=== PATIENT | female | born 1990 | race Two or more races ===

== ENCOUNTER 2018-01-31 21:18 | Emergency (ER) | payer OTHER ==
[2018-02-01] MEDS ORDERED: BENZONATATE 100 MG CAPSULE PO ONE (00:06)
[2018-02-01] MEDS ORDERED: LIDOCAINE 2% INJ-PF (20 MG/ML) 10 ML AMPUL NEB ONE (00:06)
--- NOTE | 2018-02-01 00:07 | ER Document Report ---
ED General - General Chief Complaint: Cold Symptoms Stated Complaint: COUGH,SORE THROAT Time Seen by Provider: 01/31/18 22:51 Notes: Patient is a 27-year-old female without chronic medical problems who presents with 3 days of sinus pressure, cough, nasal congestion, right ear pain and feeling generally poor. She was seen in urgent care 2 days ago, started on steroids and azithromycin pack without any improvement of her symptoms. Nothing seems to worsen her symptoms. Multiple sick contacts with similar illness. No history of similar symptoms in the recent past. She denies any fever or constitutional symptoms. No vomiting or diarrhea. She denies any shortness of breath. TRAVEL OUTSIDE OF THE [place] IN LAST 30 DAYS: No - Related Data Allergies/Adverse Reactions: No Known Allergies Allergy (Unverified 01/31/18 21:26) Past Medical History - General Information source: Patient - Social History Smoking Status: Current Every Day Smoker Chew tobacco use (# tins/day): No Frequency of alcohol use: None Drug Abuse: None Lives with: Family Family History: Reviewed & Not Pertinent Patient has suicidal ideation: No Patient has homicidal ideation: No Pulmonary Medical History: Reports: Hx Asthma Renal/ Medical History: Denies: Hx Peritoneal Dialysis Past Surgical History: Reports: Hx Appendectomy - 2007 Review of Systems - Review of Systems Notes: Constitutional: Negative for fever. HENT: Positive for sore throat. Eyes: Negative for visual changes. Cardiovascular: Negative for chest pain. Respiratory: Positive for cough Gastrointestinal: Negative for abdominal pain, vomiting or diarrhea. Genitourinary: Negative for dysuria. Musculoskeletal: Negative for back pain. Skin: Negative for rash. Neurological: Negative for headaches, weakness or numbness. 10 point ROS negative except as marked above and in HPI. Physical Exam - Vital signs Vitals: Temp Pulse Resp BP Pulse Ox 98 F 89 18 108/73 100 01/31/18 21:25 01/31/18 21:25 01/31/18 21:25 01/31/18 21:25 01/31/18 21:25 Interpretation: Normal Notes: PHYSICAL EXAMINATION: GENERAL: Well-appearing, well-nourished and in no acute distress. HEAD: Atraumatic, normocephalic. EYES: Pupils equal round and reactive to light, extraocular movements intact, sclera anicteric, conjunctiva are normal. ENT: nares patent, bulging of the right tympanic membrane without purulent effusion, left TM clear. Oropharynx clear without exudates. Moist mucous membranes. NECK: Normal range of motion, supple without lymphadenopathy LUNGS: Breath sounds clear to auscultation bilaterally and equal. No wheezes rales or rhonchi. HEART: Regular rate and rhythm without murmurs ABDOMEN: Soft, nontender, normoactive bowel sounds. No guarding, no rebound. No masses appreciated. EXTREMITIES: Normal range of motion, no pitting or edema. No cyanosis. NEUROLOGICAL: No focal neurological deficits. Moves all extremities spontaneously and on command. PSYCH: Normal mood, normal affect. SKIN: Warm, Dry, normal turgor, no rashes or lesions noted. Course - Re-evaluation Re-evalutation: 02/01/18 00:07 Presentation is most consistent with a viral upper respiratory infection. Patient is overall well appearance, vitals within normal limits, well-hydrated. Patient denies any headache, neck pain, and has no evidence of meningismus on examination. Lungs are clear bilaterally. Chest x-ray is clear. No evidence of respiratory distress. Based on clinical exam and history, I do not suspect an acute pneumonia, meningitis, strep pharyngitis, or an acute encephalitis. At this time will discharge with return precautions and follow-up recommendations. Verbal discharge instructions given a the bedside and opportunity for questions given. Medication warnings reviewed. Patient is in agreement with this plan and has verbalized understanding of return precautions and the need for primary care follow-up in the next 24-72 hours. - Vital Signs Vital signs: Temp Pulse Resp BP Pulse Ox 98.3 F 72 18 101/45 L 99 02/01/18 01:16 02/01/18 01:16 01/31/18 21:25 02/01/18 01:16 02/01/18 01:16 - Diagnostic Test Radiology reviewed: Image reviewed, Reports reviewed Radiology results interpreted by me: 02/01/18 03:55 Chest x-ray: No acute infiltrate or pneumothorax Discharge - Discharge Clinical Impression: Viral upper respiratory tract infection with cough, Right ear pain, Sore throat Condition: Good Disposition: HOME, SELF-CARE Additional Instructions: Your symptoms are most likely due to a viral infection it should resolve over the next 7-14 days. You should take nfrx-[id number] guanfacine per bottle instructions to help thin the mucus. For nasal congestion: I would recommend that you get ktvg-hmy-ykllcoa oxymetazoline also known is afrin. Use only per bottle instructions and be sure to never use this for more than 3 days if you can develop severe rebound congestion. You may also use tylenol or ibuprofen as needed for aches and thorat discomfort. Please be sure to drink plenty of fluids and get rest. Return to the emergency department he began having difficulty breathing, chest pain, persistent vomiting, or any other symptoms that are concerning to you. Prescriptions: Benzonatate [Tessalon Perles 100 mg Capsule] 100 mg PO Q8HP PRN #40 capsule PRN Reason:
--- NOTE | 2018-02-01 00:08 | RADIOLOGY REPORT (SQ) ---
EXAM DESCRIPTION: XR CHEST 1 VIEW COMPLETED DATE/TME: 01/31/2018 22:52 CLINICAL HISTORY: 27 years Female, cough, sob COMPARISON: One day prior. NUMBER OF VIEWS/TECHNIQUE: 1/AP FINDINGS: Clear lungs of adequate volume, and normal cardiac silhouette. No significant pneumothorax. Mild scoliotic curvature. IMPRESSION: No significant change.
[2018-02-01 01:21] VITALS: BP 101/45
== END 2018-02-01 01:21 | disposition home or self-care (01) ==
LOC: ER 21:18
DX: J06.9 Acute upper respiratory infection, unspecified (principal); B97.89 Other viral agents as the cause of diseases classified elsewhere; J02.9 Acute pharyngitis, unspecified; R05 Cough; H92.01 Otalgia, right ear; J34.89 Other specified disorders of nose and nasal sinuses; R09.81 Nasal congestion; F17.200 Nicotine dependence, unspecified, uncomplicated; J45.909 Unspecified asthma, uncomplicated
CPT/HCPCS: 99283; 71045; J3490

== ENCOUNTER 2018-07-21 11:20 | Emergency (ER) | payer OTHER ==
--- NOTE | 2018-07-21 11:42 | ER Document Report ---
ED Medical Screen (RME) - General Chief Complaint: Chest Pain Stated Complaint: CHEST PAIN Time Seen by Provider: 07/21/18 11:34 Primary Care Provider: HARITHA MONTANO PA-C [Primary Care Provider] - Follow up as needed TRAVEL OUTSIDE OF THE [place] IN LAST 30 DAYS: No - HPI Patient complains to provider of: Chest pain Notes: 07/21/18 11:41 Patient is a 28-year-old female presenting to the emergency room today complaining of midsternal chest pain that radiates through to her back, dizziness and generalized weakness, symptoms have been going on for the past 4 days, she denies any past medical problems, she is not a smoker, she denies a cough, cold or congestion, no nausea, vomiting or diarrhea, no history of similar symptoms previously, no recent traveling or periods of immobilization, no calf pain or tenderness RAPID MEDICAL EVALUATION DISCLOSURE I have seen this patient as part of a Rapid Medical Evaluation and, if applicable, placed any initially appropriate orders. The patient will be seen and fully evaluated, including a full history and physical exam, by a provider (in Main ED or Fast Track) when a room becomes available. - Related Data Allergies/Adverse Reactions: No Known Allergies Allergy (Verified 07/21/18 11:39) Past Medical History - Social History Frequency of alcohol use: None Drug Abuse: None Pulmonary Medical History: Reports: Hx Asthma Renal/ Medical History: Denies: Hx Peritoneal Dialysis Past Surgical History: Reports: Hx Appendectomy - 2007 Physical Exam - Vital signs Vitals: Temp Pulse Resp BP Pulse Ox 98.5 F 98 16 120/66 100 07/21/18 11:24 07/21/18 11:24 07/21/18 11:24 07/21/18 11:24 07/21/18 11:24 Course - Vital Signs Vital signs: Temp Pulse Resp BP Pulse Ox 98.5 F 98 16 120/66 100 07/21/18 11:24 07/21/18 11:24 07/21/18 11:24 07/21/18 11:24 07/21/18 11:24 Doctor's Discharge - Discharge Referrals: HARITHA MONTANO PA-C [Primary Care Provider] - Follow up as needed
--- NOTE | 2018-07-21 12:07 | RADIOLOGY REPORT (SQ) ---
EXAM DESCRIPTION: CHEST 2 VIEWS COMPLETED DATE/TIME: 07/21/2018 11:54 am REASON FOR STUDY: cp COMPARISON: None. EXAM PARAMETERS: NUMBER OF VIEWS: two views TECHNIQUE: Digital Frontal and Lateral radiographic views of the chest acquired. RADIATION DOSE: NA LIMITATIONS: none FINDINGS: LUNGS AND PLEURA: No opacities, masses or pneumothorax. No pleural effusion. MEDIASTINUM AND HILAR STRUCTURES: No masses or contour abnormalities. HEART AND VASCULAR STRUCTURES: Heart normal size. No evidence for failure. BONES: Serpiginous thoracolumbar curvature. No acute changes. HARDWARE: None in the chest. OTHER: No other significant finding. IMPRESSION: NO ACUTE RADIOGRAPHIC FINDING IN THE CHEST. TECHNICAL DOCUMENTATION: JOB ID: [id number]- All Rights Reserved Reading location - IP/workstation name: [email or web address]
[2018-07-21 12:20] LABS: ABSOLUTE EOSINOPHILS # (AUTO) 0.1 10^3/uL (0.0-0.6); ABSOLUTE LYMPHOCYTES (AUTO) 1.9 10^3/uL (0.5-4.7); ABSOLUTE MONOCYTES (AUTO) 0.3 10^3/uL (0.1-1.4); ABSOLUTE NEUT (AUTO) 2.5 10^3/uL (1.7-8.2); BASOPHILS % (AUTO) 0.8 % (0-2); EOSINOPHILS % (AUTO) 2.3 % (0-6); HEMATOCRIT 40.7 % (36.0-47.0); HEMOGLOBIN 14.1 g/dL (12.0-15.5); LYMPHOCYTES % (AUTO) 39.4 % (13-45); MEAN CORPUSCULAR HGB CONC 34.6 g/dL (32.0-36.0); MEAN CORPUSCULAR VOLUME 90 fl (80-97); MONOCYTES % (AUTO) 6.1 % (3-13); PLATELET COUNT 340 10^3/uL (150-450); RED BLOOD COUNT 4.54 10^6/uL (3.72-5.28); RED CELL DISTRIBUTION WIDTH 12.9 % (11.5-14.0); SEGMENTED NEUTROPHILS % (AUTO) 51.4 % (42-78); TOTAL CELLS COUNTED % (AUTO) 100 %; WHITE BLOOD COUNT 4.9 10^3/uL (4.0-10.5)
[2018-07-21 12:28] LABS: APPEARANCE,URINE SLIGHTLY-CLOUDY; BILIRUBIN,URINE NEGATIVE (NEGATIVE); COLOR,URINE YELLOW; GLUCOSE, URINE NEGATIVE (NEGATIVE); KETONES,URINE NEGATIVE (NEGATIVE); LEUKOCYTE ESTERASE,URINE SMALL (NEGATIVE); NITRITE,URINE NEGATIVE (NEGATIVE); PROTEIN,URINE NEGATIVE (NEGATIVE); URINE SPECIFIC GRAVITY 1.021; UROBILINOGEN,URINE NEGATIVE mg/dL (<2.0)
[2018-07-21 12:35] LABS: ALANINE AMINOTRANSFERASE 20 U/L (9-52); ALBUMIN 4.5 g/dL (3.5-5.0); ALKALINE PHOSPHATASE 58 U/L (38-126); ANION GAP 9 (5-19); ASPARTATE AMINO TRANSFERASE 19 U/L (14-36); BILIRUBIN,DIRECT 0.2 mg/dL (0.0-0.4); BILIRUBIN,TOTAL 0.5 mg/dL (0.2-1.3); BLOOD UREA NITROGEN 14 mg/dL (7-20); CARBON DIOXIDE 28 mmol/L (22-30); CHLORIDE 105 mmol/L (98-107); GLUCOSE 79 mg/dL (75-110); LIPASE 75.4 U/L (23-300); POTASSIUM 3.6 mmol/L (3.6-5.0); SODIUM 142.2 mmol/L (137-145); TOTAL PROTEIN 7.4 g/dL (6.3-8.2)
--- NOTE | 2018-07-21 12:37 | ER Document Report ---
ED General - General Chief Complaint: Chest Pain Stated Complaint: CHEST PAIN Time Seen by Provider: 07/21/18 11:34 Primary Care Provider: HARITHA MONTANO PA-C [NO LOCAL MD] - Follow up as needed Notes: 28-year-old female presenting to the emergency room today complaining of midsternal chest pain that radiates through to her back, dizziness and generalized weakness, symptoms have been going on for the past 4 days, she denies any past medical problems, she is not a smoker, she denies a cough, cold or congestion, no nausea, vomiting or diarrhea, no history of similar symptoms previously, no recent traveling or periods of immobilization, no calf pain or tenderness. Denies any fever chills or cough. Denies any chest trauma. Denies calf pain or leg swelling denies illicit drugs. TRAVEL OUTSIDE OF THE [place] IN LAST 30 DAYS: No - Related Data Allergies/Adverse Reactions: No Known Allergies Allergy (Verified 07/21/18 11:39) Past Medical History - Social History Smoking Status: Current Every Day Smoker Frequency of alcohol use: None Drug Abuse: None Family History: Reviewed & Not Pertinent Patient has suicidal ideation: No Patient has homicidal ideation: No Pulmonary Medical History: Reports: Hx Asthma Renal/ Medical History: Denies: Hx Peritoneal Dialysis Past Surgical History: Reports: Hx Appendectomy - 2007 Review of Systems - Review of Systems Constitutional: denies: Chills, Fever Cardiovascular: Chest pain, Palpitations Respiratory: Short of breath. denies: Hemoptysis, Wheezing Neurological/Psychological: Anxiety -: Yes All other systems reviewed and negative Physical Exam - Vital signs Vitals: Temp Pulse Resp BP Pulse Ox 98.5 F 98 16 120/66 100 07/21/18 11:24 07/21/18 11:24 07/21/18 11:24 07/21/18 11:24 07/21/18 11:24 - Notes Notes: GENERAL_APPEARANCE: well_nourished, alert, cooperative, no_acute_distress, no_obvious_discomfort. VITALS: reviewed, see vital signs table. HEAD: no_swelling\tenderness on the head. EYES: PERRL, EOMI, conjunctiva_clear. NOSE: no_nasal_discharge. MOUTH: (-)decreased moisture. THROAT: no_throat_inflammation, no_airway_obstruction. no_lymphadenopathy NECK: supple, no_neck_tenderness, (-)thyromegaly. BACK: no_back_tenderness. CHEST_WALL: Left parasternal_chest_tenderness. Crepitus or subcutaneous emphysema LUNGS: no_wheezing, no_rales, no_rhonchi, (-)accessory muscle use, good air exchange bilateral. HEART: normal_rate, normal_rhythm, normal_S1, normal_S2, (-)S3, (-)S4, no_murmur, no_rub. ABDOMEN: normal_BS, soft, no_abd_tenderness, (-)guarding, (-)rebound, no_organomegaly, no_abd_masses. EXTREMITIES: strength 5/5 in all_extremities, good pulses in all_extremities, no_swelling\tenderness in the extremities, no_edema. SKIN: warm, dry, good_color, no_rash. MENTAL_STATUS: speech_clear, oriented_X_3, anxious_affect, responds_appropriately to questions. Course - Re-evaluation Re-evalutation: 07/21/18 12:38 28-year-old female presents with some chest discomfort. EKG shows no significant changes. The patient has some reproducible discomfort in the left parasternal cartilage. No crepitus no subcu tinnitus emphysema. 07/21/18 12:39 Patient low risk for ACS heart score is 1. Perk Negative -no risk for PE no tachycardia tachypnea or oxygen requirements are noted no calf pain or leg tenderness no history of DVT or PE before. 07/21/18 13:54 Workup has been negative. Patient is low risk for DVT and ACS. I think this is likely costochondritis based on clinical exam recommend ibuprofen. Follow-up if not improving in 48-72 hours - Vital Signs Vital signs: Temp Pulse Resp BP Pulse Ox 98.5 F 98 18 120/66 98 07/21/18 11:24 07/21/18 11:24 07/21/18 12:35 07/21/18 11:24 07/21/18 12:35 - Laboratory Result Diagrams: 07/21/18 11:57 07/21/18 11:57 Laboratory results interpreted by me: 07/21/18 11:57 Urine Blood LARGE H Ur Leukocyte Esterase SMALL H - Diagnostic Test Radiology reviewed: Reports reviewed Radiology results interpreted by me: 07/21/18 13:56 Chest X-Ray 07/21/18 11:41 IMPRESSION: NO ACUTE RADIOGRAPHIC FINDING IN THE CHEST. - EKG Interpretation by Me EKG shows normal: Sinus rhythm Rate: Normal Rhythm: NSR Discharge - Discharge Clinical Impression: Acute costochondritis Condition: Good Disposition: HOME, SELF-CARE Instructions: Chest Wall Pain ([facility]) Additional Instructions: Take ibuprofen for pain, if not improving in 40-72 hours return to the ER Referrals: HARITHA MONTANO PA-C [NO LOCAL MD] - Follow up as needed
[2018-07-21 14:04] VITALS: BP 92/57
--- NOTE | 2018-07-21 15:56 | EKG REPORT ---
SEVERITY:- NORMAL ECG - SINUS RHYTHM : Confirmed by: Juan Pablo Vidales MD 21-Jul-2018 15:55:39
== END 2018-07-21 14:16 | disposition home or self-care (01) ==
LOC: ER 11:20
DX: M94.0 Chondrocostal junction syndrome [Tietze] (principal); F17.200 Nicotine dependence, unspecified, uncomplicated
CPT/HCPCS: 36415; 71046; 80053; 81001; 81025; 83690; 84484; 85025; 93005; 93010; 99285

== ENCOUNTER 2019-01-20 19:49 | Emergency (ER) | payer OTHER, MEDICAID ==
[2019-01-20 21:26] LABS: ABSOLUTE EOSINOPHILS # (AUTO) 0.1 10^3/uL (0.0-0.6); ABSOLUTE LYMPHOCYTES (AUTO) 2.2 10^3/uL (0.5-4.7); ABSOLUTE MONOCYTES (AUTO) 0.4 10^3/uL (0.1-1.4); ABSOLUTE NEUT (AUTO) 4.9 10^3/uL (1.7-8.2); BASOPHILS % (AUTO) 0.5 % (0-2); EOSINOPHILS % (AUTO) 1.8 % (0-6); HEMATOCRIT 36.8 % (36.0-47.0); HEMOGLOBIN 12.7 g/dL (12.0-15.5); LYMPHOCYTES % (AUTO) 28.8 % (13-45); MEAN CORPUSCULAR HEMOGLOBIN 30.4 pg (27.0-33.4); MEAN CORPUSCULAR HGB CONC 34.5 g/dL (32.0-36.0); MEAN CORPUSCULAR VOLUME 88 fl (80-97); MONOCYTES % (AUTO) 5.5 % (3-13); PLATELET COUNT 325 10^3/uL (150-450); RED BLOOD COUNT 4.18 10^6/uL (3.72-5.28); RED CELL DISTRIBUTION WIDTH 14.1 % (11.5-14.0); SEGMENTED NEUTROPHILS % (AUTO) 63.4 % (42-78); TOTAL CELLS COUNTED % (AUTO) 100 %; WHITE BLOOD COUNT 7.6 10^3/uL (4.0-10.5)
[2019-01-20 21:37] LABS: APPEARANCE,URINE SLIGHTLY-CLOUDY; BILIRUBIN,URINE NEGATIVE (NEGATIVE); COLOR,URINE YELLOW; GLUCOSE, URINE NEGATIVE (NEGATIVE); KETONES,URINE NEGATIVE (NEGATIVE); LEUKOCYTE ESTERASE,URINE LARGE (NEGATIVE); NITRITE,URINE NEGATIVE (NEGATIVE); PROTEIN,URINE NEGATIVE (NEGATIVE); URINE SPECIFIC GRAVITY 1.021; UROBILINOGEN,URINE NEGATIVE mg/dL (<2.0)
[2019-01-20 21:45] LABS: ALANINE AMINOTRANSFERASE 19 U/L (9-52); ALBUMIN 3.6 g/dL (3.5-5.0); ALKALINE PHOSPHATASE 49 U/L (38-126); ANION GAP 8 (5-19); ASPARTATE AMINO TRANSFERASE 15 U/L (14-36); BILIRUBIN,DIRECT 0.2 mg/dL (0.0-0.4); BILIRUBIN,TOTAL 0.3 mg/dL (0.2-1.3); BLOOD UREA NITROGEN 10 mg/dL (7-20); CALCIUM 9.2 mg/dL (8.4-10.2); CARBON DIOXIDE 26 mmol/L (22-30); CHLORIDE 105 mmol/L (98-107); GLUCOSE 78 mg/dL (75-110); POTASSIUM 3.9 mmol/L (3.6-5.0); TOTAL PROTEIN 6.2 g/dL (6.3-8.2)
--- NOTE | 2019-01-20 22:09 | ER Document Report ---
ED GI/ - General Chief Complaint: Abdominal Pain Stated Complaint: ABDOMINAL PAIN, DIZZINESS Time Seen by Provider: 01/20/19 20:44 Primary Care Provider: [facility] [Outside] - Follow up as needed Mode of Arrival: Ambulatory Information source: Patient Notes: Patient is a 28-year-old female presenting to the emergency department with chief complaints of left lower quadrant abdominal pain. Patient reports pain started yesterday. She reports it feels like a cramping pain. She reports nausea but denies any vomiting or diarrhea. She does report that she has been constipated lately. She reports past medical history of having an appendectomy, denies possibility of . Patient is not on any control. Patient does report that she had a fever of 101 yesterday. TRAVEL OUTSIDE OF THE [place] IN LAST 30 DAYS: No - Related Data Allergies/Adverse Reactions: No Known Allergies Allergy (Verified 07/21/18 11:39) Past Medical History - General Information source: Patient - Social History Smoking Status: Never Smoker Frequency of alcohol use: None Drug Abuse: None Family History: Reviewed & Not Pertinent Pulmonary Medical History: Reports: Hx Asthma Renal/ Medical History: Denies: Hx Peritoneal Dialysis Past Surgical History: Reports: Hx Appendectomy - 2007 - Immunizations Immunizations up to date: Yes Review of Systems - Review of Systems Constitutional: No symptoms reported EENT: No symptoms reported Cardiovascular: No symptoms reported Respiratory: No symptoms reported Gastrointestinal: Abdominal pain, Nausea, Constipation. denies: Diarrhea, Vomiting Genitourinary: No symptoms reported. denies: Burning, Dysuria, Frequency, Flank pain Female Genitourinary: No symptoms reported. denies: Musculoskeletal: No symptoms reported Skin: No symptoms reported Hematologic/Lymphatic: No symptoms reported Neurological/Psychological: No symptoms reported Physical Exam - Vital signs Vitals: Temp Pulse Resp BP Pulse Ox 98.8 F 103 H 24 H 115/68 100 01/20/19 20:02 01/20/19 20:02 01/20/19 20:02 01/20/19 20:02 01/20/19 20:02 - Notes Notes: PHYSICAL EXAMINATION: GENERAL: Well-appearing, well-nourished and in no acute distress. HEAD: Atraumatic, normocephalic. EYES: Pupils equal round and reactive to light, extraocular movements intact, conjunctiva are normal. ENT: Nares patent, oropharynx clear without exudates. Moist mucous membranes. NECK: Normal range of motion, supple without lymphadenopathy LUNGS: Breath sounds clear to auscultation bilaterally and equal. No wheezes rales or rhonchi. HEART: Regular rate and rhythm without murmurs ABDOMEN: Soft, nondistended abdomen. Tenderness with palpation to left lower quadrant. No guarding, no rebound. No masses appreciated. Female : No CVA tenderness. Musculoskeletal: Normal range of motion, no pitting or edema. No cyanosis. NEUROLOGICAL: Cranial nerves grossly intact. Normal speech, normal gait. Normal sensory, motor exams PSYCH: Normal mood, normal affect. SKIN: Warm, Dry, normal turgor, no rashes or lesions noted. Course - Re-evaluation Re-evalutation: Laboratory 01/20/19 01/20/19 01/20/19 20:40 21:10 21:10 WBC 7.6 RBC 4.18 Hgb 12.7 Hct 36.8 MCV 88 MCH 30.4 MCHC 34.5 RDW 14.1 H Plt Count 325 Seg Neutrophils % 63.4 Lymphocytes % 28.8 Monocytes % 5.5 Eosinophils % 1.8 Basophils % 0.5 Absolute Neutrophils 4.9 Absolute Lymphocytes 2.2 Absolute Monocytes 0.4 Absolute Eosinophils 0.1 Absolute Basophils 0.0 Sodium 138.5 Potassium 3.9 Chloride 105 Carbon Dioxide 26 Anion Gap 8 BUN 10 Creatinine 0.57 Est GFR ( Amer) > 60 Est GFR (Non-Af Amer) > 60 Glucose 78 Calcium 9.2 Total Bilirubin 0.3 Direct Bilirubin 0.2 Neonat Total Bilirubin Not Reportable Neonat Direct Bilirubin Not Reportable Neonat Indirect Bili Not Reportable AST 15 ALT 19 Alkaline Phosphatase 49 Total Protein 6.2 L Albumin 3.6 Lipase 93.2 Beta HCG, Quant Total Beta HCG Urine Color YELLOW Urine Appearance SLIGHTLY-CLOUDY Urine pH 5.0 Ur Specific [place] 1.021 Urine Protein NEGATIVE Urine Glucose (UA) NEGATIVE Urine Ketones NEGATIVE Urine Blood NEGATIVE Urine Nitrite NEGATIVE Urine Bilirubin NEGATIVE Urine Urobilinogen NEGATIVE Ur Leukocyte Esterase LARGE H Urine WBC (Auto) 13 Urine RBC (Auto) 2 Squamous Epi Cells Auto 8 Urine Mucus (Auto) RARE Urine Ascorbic Acid NEGATIVE Urine HCG, Qual POSITIVE H 01/20/19 21:10 WBC RBC Hgb Hct MCV MCH MCHC RDW Plt Count Seg Neutrophils % Lymphocytes % Monocytes % Eosinophils % Basophils % Absolute Neutrophils Absolute Lymphocytes Absolute Monocytes Absolute Eosinophils Absolute Basophils Sodium Potassium Chloride Carbon Dioxide Anion Gap BUN Creatinine Est GFR ( Amer) Est GFR (Non-Af Amer) Glucose Calcium Total Bilirubin Direct Bilirubin Neonat Total Bilirubin Neonat Direct Bilirubin Neonat Indirect Bili AST ALT Alkaline Phosphatase Total Protein Albumin Lipase Beta HCG, Quant 1777.80 H Total Beta HCG POSITIVE Urine Color Urine Appearance Urine pH Ur Specific [place] Urine Protein Urine Glucose (UA) Urine Ketones Urine Blood Urine Nitrite Urine Bilirubin Urine Urobilinogen Ur Leukocyte Esterase Urine WBC (Auto) Urine RBC (Auto) Squamous Epi Cells Auto Urine Mucus (Auto) Urine Ascorbic Acid Urine HCG, Qual Transvaginal US 01/20/19 21:03 IMPRESSION: Unremarkable pelvic ultrasound. All test results were discussed with patient, quick patient was quite surprised that she was . Patient very tearful, states she cannot have another b angelia as she is a single mother with a 3-year-old, patient requested information for [facility] as she states she will most likely need to terminate the . I did give patient all needed resources. I did start her on an antibiotic for urinary tract infection. I also explained to her that this is likely an early considering that she does not have any intrauterine on the ultrasound but a positive blood in urine test. I also discussed with patient that an early ectopic cannot be excluded at this point in time and she has strict ED return precautions. Patient verbalized understanding and agreement with plan. The patient's emergency department workup and current diagnosis were explained to the patient and or family. Follow-up instructions were provided. Medications if prescribed were discussed. Instructions for when to return to the emergency department including specific worrisome symptoms were discussed with the patient and/or family. - Vital Signs Vital signs: Temp Pulse Resp BP Pulse Ox 98.9 F 78 16 105/64 100 01/20/19 23:44 01/20/19 23:44 01/20/19 23:44 01/20/19 23:44 01/20/19 23:44 - Laboratory Result Diagrams: 01/20/19 21:10 01/20/19 21:10 Laboratory results interpreted by me: 01/20/19 01/20/19 01/20/19 20:40 21:10 21:10 RDW 14.1 H Total Protein 6.2 L Beta HCG, Quant Ur Leukocyte Esterase LARGE H Urine HCG, Qual POSITIVE H 01/20/19 21:10 RDW Total Protein Beta HCG, Quant 1777.80 H Ur Leukocyte Esterase Urine HCG, Qual Discharge - Discharge Clinical Impression: Qualifiers: Weeks of gestation: unspecified Qualified Code(s): Z34.90 - Encounter for supervision of normal , unspecified, unspecified trimester Abdominal pain Qualifiers: Abdominal location: left lower quadrant Qualified Code(s): R10.32 - Left lower quadrant pain Condition: Stable Disposition: HOME, SELF-CARE Additional Instructions: Your urine shows findings consistent with a urinary tract infection. Your blood and labs show a probable early as both tests were positive. There was no evidence of on the ultrasound suite is likely that you are less than 6 weeks. Please take all the antibiotics as directed even if your symptoms have improved. Please follow-up with your primary care physician as needed. Soak the affected finger and Epson salt soaks 3-4 times daily. Return to emergency room if you develop fever >101F, persistent vomiting, become lethargic, have severe pain in your sides, or any other symptoms that are concerning to you. [facility] [address] [address] [facility], [place] [address] Prescriptions: Cephalexin [Cephalexin 500 MG Tablet] 1 tab PO BID #14 tablet Referrals: [facility] [Outside] - Follow up as needed
--- NOTE | 2019-01-20 22:12 | RADIOLOGY REPORT (SQ) ---
US PELVIS EXAM DATE: 01/20/2019 9:03 PM CDT HISTORY: Left lower quadrant pain. COMPARISON: None. TECHNIQUE: Grayscale, color Doppler, and spectral Doppler ultrasound images of the pelvis were obtained. FINDINGS: The uterus is anteverted and measures 8.8 x 5.7 x 4.5 cm. The endometrium is 1.6 cm in thickness. The cervix is closed and measures 2.3 cm in length. Nabothian cysts are seen in the cervix. Both ovaries are normal in size and contain normal follicles, with the right ovary measuring 2.2 x 2.9 x 3.5 cm, and the left ovary measuring 1.4 x 1.6 x 2.3 cm. Normal color Doppler blood flow is seen in both ovaries. No pelvic free fluid. IMPRESSION: Unremarkable pelvic ultrasound.
[2019-01-20 23:46] VITALS: BP 105/64
== END 2019-01-20 23:46 | disposition home or self-care (01) ==
LOC: ER 19:49
DX: O23.40 Unspecified infection of urinary tract in pregnancy, unspecified trimester (principal); O99.619 Diseases of the digestive system complicating pregnancy, unspecified trimester; K59.00 Constipation, unspecified; O26.899 Other specified pregnancy related conditions, unspecified trimester; R10.32 Left lower quadrant pain; R10.814 Left lower quadrant abdominal tenderness; R11.0 Nausea; O99.519 Diseases of the respiratory system complicating pregnancy, unspecified trimester; J45.909 Unspecified asthma, uncomplicated; Z3A.00 Weeks of gestation of pregnancy not specified; Z90.49 Acquired absence of other specified parts of digestive tract
CPT/HCPCS: 36415; 76817; 80053; 81001; 81025; 83690; 84702; 85025; 93976; 99284

== ENCOUNTER 2019-01-22 18:55 | Emergency (ER) | payer OTHER, MEDICAID ==
[2019-01-22 19:15] VITALS: BP 103/61
--- NOTE | 2019-01-22 20:13 | ER Document Report ---
HPI - HPI Pain Level: 2 Notes: Patient is a 28-year-old female is approximately 5 weeks who presents complaining of infection to the nail of her fourth left finger status post injury a few days ago. Patient was evaluated and given Keflex 2 days ago. Patient states that she has had continued discharge from the area and some increase redness. She has no other concerns or complaints. She is eating and drinking without difficulty. She is urinating normally. Denies drug allergies. Denies any headache, fever, URI, sore throat, chest pain, palpitations, syncope, cough, shortness of breath, wheeze, dyspnea, abdominal pain, nausea/vomiting/diarrhea, urinary retention, dysuria, hematuria, numbness/tingling, muscle paralysis/weakness, or rash. - ROS Systems Reviewed and Negative: Yes All other systems reviewed and negative - REPRODUCTIVE Reproductive: DENIES: : Past Medical History - Social History Smoking Status: Unknown if Ever Smoked Family History: Reviewed & Not Pertinent Pulmonary Medical History: Reports: Hx Asthma Renal/ Medical History: Denies: Hx Peritoneal Dialysis Past Surgical History: Reports: Hx Appendectomy - 2007 - Immunizations Immunizations up to date: Yes Vertical Provider Document - CONSTITUTIONAL Agree With Documented VS: Yes Notes: PHYSICAL EXAMINATION: GENERAL: Well-appearing, well-nourished and in no acute distress. LUNGS: Breath sounds clear to auscultation bilaterally and equal. No wheezes rales or rhonchi. HEART: Regular rate and rhythm without murmurs, rubs, gallops. Musculoskeletal: Left 4th finger: FROM to passive/active. Strength 5+/5. N/V intact distal. + small paronychia noted with purulence being expressed. + erythema without streaking. Extremities: No cyanosis, clubbing, or edema b/l. Peripheral pulses 2+. Capillary refill less than 3 seconds. NEUROLOGICAL: Normal speech, normal gait. Normal sensory, motor exams PSYCH: Normal mood, normal affect. SKIN: see above. - INFECTION CONTROL TRAVEL OUTSIDE OF THE [place] IN LAST 30 DAYS: No Course - Re-evaluation Re-evalutation: 01/22/19 Patient is an afebrile, well-hydrated, 28-year-old female who presents with a small paronychia to the left fourth finger. Vitals are acceptable without significant tachycardia, tachypnea, or hypoxia. PE is otherwise unremarkable for any neurovascular compromise, obvious tendon/leg rupture, obvious fracture/dislocation, septic joint. Patient is nontoxic-appearing and is tolerating p.o. without difficulty. Incision and drainage was performed successfully without any complications. Patient is aware that there is possibility she could lose her fingernail as she is having some discharge coming out from underneath status post nail injury the other day. Patient is currently so we will start her on clindamycin. No further work-up warranted at this time. Recheck with your PCM in 2 to 3 days. Return to the ED with any other worsening/concerning symptoms. Patient is in agreement. - Vital Signs Vital signs: Temp Pulse Resp BP Pulse Ox 98.7 F 89 16 103/61 99 01/22/19 19:14 01/22/19 19:14 01/22/19 19:14 01/22/19 19:14 01/22/19 19:14 Procedures - Incision and Drainage Left Finger 4th digit Type: Simple Anesthetic type: 1% Lidocaine mL's of anesthetic: 5 - digital block Blade size: 11 I&D procedure: Chlorprep applied, Sterile dressing applied Incision Method: Incision made by scalpel Amount/type of drainage: scant purulent Notes: 01/22/19 Patient tolerated procedure well without any complications dressing was placed Discharge - Discharge Clinical Impression: Paronychia Condition: Stable Disposition: HOME, SELF-CARE Instructions: Clindamycin ([facility]), Paronychia ([facility]) Additional Instructions: Keep the skin clean Wash with soap and water Tylenol/ibuprofen if needed Triple antibiotic ointment daily Take medication as directed Epsom salt soaks Monitor for any worsening symptoms Recheck with your PCM in 2-3 days Return to the ED with any worsening symptoms and/or development of fever, headache, chest pain, palpitations, syncope, shortness of breath, trouble breathing, abdominal pain, n/v/d, abscess, purulent discharge, red streaks, worsening swelling, or other worsening symptoms that are concerning to you. Prescriptions: Clindamycin HCl [Cleocin 300 mg Capsule] 300 mg PO TID #30 capsule Referrals: [facility] [Provider Group] - Follow up as needed
== END 2019-01-22 21:08 | disposition home or self-care (01) ==
LOC: ER 18:55
PROC: 0H9QXZZ Drainage of Finger Nail, External Approach (ICD-10-PCS; principal; 2019-01-22)
DX: O99.711 Diseases of the skin and subcutaneous tissue complicating pregnancy, first trimester (principal); L03.012 Cellulitis of left finger; Z3A.01 Less than 8 weeks gestation of pregnancy; O99.511 Diseases of the respiratory system complicating pregnancy, first trimester; J45.909 Unspecified asthma, uncomplicated
CPT/HCPCS: 99282